=== PATIENT | female | born 1950 | race Caucasian/White ===

== ENCOUNTER 2017-01-23 16:01 | Emergency (ER) | payer BC, MEDICARE ==
--- NOTE | 2017-01-23 16:54 | RAD ---
INDICATION: Left shoulder pain COMPARISON: None TECHNIQUE: AP, lateral, and oblique views were obtained. FINDINGS: There is osteopenia with minimal impacted fracture involving the surgical neck of the humerus. No other fractures are evident. 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 IMPRESSION: IMPACTED SURGICAL NECK FRACTURE.
[2017-01-23] MEDS ORDERED: HYDROcodone/ACETAMIN 5-325 MG* 1 TAB PO ONE (17:44)
--- NOTE | 2017-01-23 19:15 | RAD ---
INDICATION: Proximal humeral fracture COMPARISON: Left shoulder same date TECHNIQUE: Axial scans of the proximal humerus were performed followed by coronal and sagittal reconstruction. FINDINGS: There is an impacted transverse fracture through the surgical neck of the humerus. There are small avulsed fracture fragments at the junction of the head and neck. There are no other fractures. The a.c. and glenohumeral joints appear intact. There is minor underlying osteoarthritis. There are no significant soft tissue abnormalities. IMPRESSION: IMPACTED FRACTURE THE SURGICAL NECK OF THE HUMERUS WITH ADDITIONAL SMALL AVULSED FRAGMENTS.
[2017-01-23 20:02] VITALS: BP 128/57
--- NOTE | 2017-01-24 04:26 | ED ---
Jer Robledo Angela, scribed for Ashly Quinonez MD on 01/23/17 at 1720 . Upper Extremity Pain - HPI Summary HPI Summary: This pt is a 66 y/o female, accompanid by her niece, presenting to [facility] c/o left upper arm pain s/p fall 3 days ago. Pt reports she woke up at 06:00 3 days ago after hearing a loud noise and her cat jumped to her neck, which caused her to fall. She notes head strike but denies head injury or LOC. Pt reports left upper arm pain, which is aggravated with movement. She notes bruise on her left arm and has been using a sling for comfort. Pt denies headache, blurry vision, neck pain, chest pain, SOB, abd pain, back pain, dysuria, hematuria. Pt is on baby aspirin (once a day). She reports her tetanus shot is UTD. She is "trying to stop smoking." Pt is currently being treated for depression and anxiety. She denies SI, HI, hallucinations. - History of Current Complaint Chief Complaint: EDExtremityUpper Stated Complaint: LT SHOULDER INJURY Time Seen by Provider: 01/23/17 17:09 Hx Obtained From: Patient Mechanism Of Injury: Fall From Height Of: Onset/Duration: Started Days Ago, Traumatic, Still Present Timing: Lasting Days Pain Location: Arm - left upper Aggravating Factor(s): Movement Associated Signs & Symptoms: Positive: Bruising. Negative: Fever, Chest Pain, SOB, Back Pain, Neck Pain - Allergies/Home Medications Allergies/Adverse Reactions: Allergies Allergy/AdvReac Type Severity Reaction Status Date / Time No Known Allergies Allergy Verified 02/06/14 11:42 PMH/Surg Hx/FS Hx/Imm Hx Endocrine/Hematology History: Reports: Hx Diabetes Cardiovascular History: Reports: Hx Hypertension, Other Cardiovascular Problems/ Disorders - high cholesterol Psychiatric History: Reports: Hx Anxiety, Hx Depression - Immunization History Date of Tetanus Vaccine: UTD Date of Influenza Vaccine: NO Infectious Disease History: No Infectious Disease History: Denies: Traveled Outside the [place] in Last 30 Days - Family History Known Family History: Positive: Diabetes, Other - Mother: kidney CA. Father: prostate CA. - Social History Alcohol Use: Occasionally Substance Use Type: Reports: None Smoking Status (MU): Current Some Day Smoker Review of Systems Negative: Fever, Chills Negative: Blurred Vision, Diplopia Negative: Chest Pain Negative: Shortness Of Breath Negative: Abdominal Pain Negative: dysuria, hematuria Musculoskeletal: Other - left upper arms pain Negative: Other - back pain, neck pain Positive: Bruising - left arm Negative: Headache Negative: Other - SI, HI, hallucinations All Other Systems Reviewed And Are Negative: No Physical Exam - Summary Physical Exam Summary: Appearance: Alert, conversive, nontoxic appearing Skin: Warm, dry, no mottling, no rashes, no contusions HEENT: EOMI, PERRL, moist mucous membranes Neck: No masses on the neck, supple Respiratory: Clear to auscultation, breath sounds present, no rales, no rhonchi , no wheezes Cardiovascular: RRR, pulses are symmetrical in both lower and upper extremities Abdomen: Soft, non-tender Bowel Sounds: Present Musculoskeletal: No CVA tenderness, no obvious deformity. Bruising along the proximal left arm. Neurological: A&Ox3, CN II-XII Intact, moving all extremities symmetrically Psychiatric: Normal affect and mood Triage Information Reviewed: Yes Vital Signs On Initial Exam: Initial Vitals Temp Pulse Resp BP Pulse Ox 97.2 F 89 20 83/65 95 01/23/17 16:03 01/23/17 16:03 01/23/17 16:03 01/23/17 16:03 01/23/17 16:03 Vital Signs Reviewed: Yes - Reanna Coma Scale Coma Scale Total: 15 Diagnostics - Vital Signs Vital Signs Temp Pulse Resp BP Pulse Ox 01/23/17 16:03 97.2 F 89 20 83/65 95 - Laboratory Lab Statement: Any lab studies that have been ordered have been reviewed, and results considered in the medical decision making process. - Radiology Left shoulder XR Xray Interpretation: Positive (See Comments) - IMPRESSION: Impacted surgical neck fracture. Dr. Quinonez has reviewed this radiology report. Radiology Interpretation Completed By: Radiologist - CT Left upper extremity CT CT Interpretation Completed By: Radiologist - Official radiologist report is pending, please see Delivery Agent. Course/Dx - Course Course Of Treatment: This pt is a 66 y/o female, accompanid by her niece, presenting to [facility] c/o left upper arm pain s/p fall 3 days ago. Pt reports she woke up at 06:00 3 days ago after hearing a loud noise and her cat jumped to her neck, which caused her to fall. She notes head strike but denies head injury or LOC. Pt reports left upper arm pain, which is aggravated with movement. She notes bruise on her left arm and has been using a sling for comfort. MDM: Left shoulder XR shows impacted surgical neck fracture. In the ED course, the pt was given norco for the pain. A left upper extremity CT was ordered. - Diagnoses Differential Diagnosis/HQI/PQRI: Positive: Arthritis, Contusion, Fracture ( Closed) Provider Diagnoses: Humeral surgical neck fracture Discharge - Discharge Plan Condition: Stable Disposition: HOME Discharge Disposition Comment: stable Patient Education Materials: Proximal Humerus Fracture (ED) Referrals: Meron Graham MD [Primary Care Provider] - Jayy Donaldson MD [Medical Doctor] - Additional Instructions: Take tylenol and motrin for pain. Please wear the sling as instructed. Please call Dr. Donaldson's office, orthopedic surgeon, for a follow up appt in 3-5 days. return if worse or any new symptoms. The documentation as recorded by the Jer marie Angela accurately reflects the service I personally performed and the decisions made by , Ashly Quinonez MD.
== END 2017-01-23 20:40 | disposition home or self-care (01) ==
LOC: ED 16:01
DX: S42.212A Unspecified displaced fracture of surgical neck of left humerus, initial encounter for closed fracture (principal); M79.602 Pain in left arm; Z86.79 Personal history of other diseases of the circulatory system; Z72.0 Tobacco use; W19.XXXA Unspecified fall, initial encounter; Y93.9 Activity, unspecified; Y92.9 Unspecified place or not applicable; Y99.9 Unspecified external cause status
CPT/HCPCS: 99282

== ENCOUNTER 2020-09-06 16:30 | Inpatient (IN) ==
[2020-09-06] MEDS ORDERED: NS 0.9% 1000 ml BAG 1,000 ML IV ONE ×2 (16:50→17:10)
[2020-09-06 17:02] LABS: Hematocrit 46 % (35-47); Hemoglobin 14.7 g/dL (12.0-16.0); Mean Corpuscular HGB Conc 32 g/dL (31-36); Mean Corpuscular Hemoglobin 32 pg (27-31); Mean Corpuscular Volume 98 fL (80-97); Mean Platelet Volume 8.4 fL (7.4-10.4); Platelet Count 272 10^3/uL (150-450); Red Blood Count 4.65 10^6 /uL (3.70-4.87); Red Cell Distribution Width 14 % (10-15); White Blood Count 28.4 10^3/uL (3.5-10.8)
[2020-09-06 17:17] LABS: ABS Lymphocytes 2.8 10^3/ul (1.0-4.8); ABS Monocytes 1.8 10^3/ul (0-0.8); ABS Neutrophils 23.7 10^3/ul (1.5-7.7); Eosinophil % 0.1 %
[2020-09-06 17:21] LABS: Troponin I 2.11 ng/mL (<0.03)
[2020-09-06 17:28] LABS: Activated Partial Thrombo Time 30.3 seconds (26.0-38.0); INR 1.15 (0.86-1.15)
[2020-09-06 17:36] LABS: Albumin 3.4 g/dL (3.2-5.2); Blood Urea Nitrogen 51 mg/dL (6-24); Calcium 7.8 mg/dL (8.6-10.3); Chloride 94 mmol/L (101-111); EGFR African American 21.7 (>60); EGFR Non-African American 17.9 (>60); Magnesium 2.6 mg/dL (1.9-2.7); Potassium 4.1 mmol/L (3.5-5.0); Sodium 134 mmol/L (135-145); Total Protein 5.4 g/dL (6.4-8.9)
[2020-09-06 17:37] LABS: ALT 30 U/L (7-52); AST 44 U/L (13-39); Albumin/Globulin Ratio 1.7 (1-3); Alkaline Phosphatase 56 U/L (35-149); Anion Gap 27 mmol/L (2-11); CO2 Carbon Dioxide 13 mmol/L (22-32); Glucose 504 mg/dL (70-100); Lipase 19 U/L (11.0-82.0)
[2020-09-06] MEDS ORDERED: Piperacillin/Tazobac ADVAN 3.375 GM in NS 0.9% 100 ml BAG 100 ML IV ONE (17:48)
[2020-09-06] MEDS ORDERED: Vancomycin 2,000 MG in NS 0.9% 250 ml 250 ML IVPB ONE (17:49)
[2020-09-06] MEDS ORDERED: Insulin Infusion 100unit/100mL 100 UNIT/100 ML BAG IV ONE (18:14)
[2020-09-06] MEDS ORDERED: Vancomycin 1,750 MG in NS 0.9% 500 ml BAG 500 ML IVPB ONE (18:30)
[2020-09-06] MEDS ORDERED: Norepinephrine 16MCG/ML IVPRE 4,000 MCG/250 ML BAG IV SCH (19:00)
[2020-09-06] MEDS ORDERED: Meropenem 1 GM PREMIX(*) 1 GM/50 ML BAG IV ONE (20:14)
[2020-09-06] MEDS ORDERED: Morphine 2 MG/ML SYRINGE IV PRN (20:14)
[2020-09-06] MEDS ORDERED: Ondansetron 4 mg VIAL 2 MG/ML 2 ml VIAL IV PRN (20:14)
[2020-09-06] MEDS ORDERED: Acetaminophen IV 1 GM/100ML 100 ML IV ONE (20:15)
[2020-09-06] MEDS ORDERED: Pantoprazole VIAL 40 MG VIAL IV ONE (20:25)
[2020-09-06] MEDS ORDERED: Dextrose 50% Syringe 50 ml 25 GM/50 ML SYRINGE IV PUSH PRN (20:54)
[2020-09-06] MEDS ORDERED: Meropenem 500MG PREMIX(*) 500 MG/50 ML BAG IV SCH (21:00)
[2020-09-06] MEDS ORDERED: Sodium Bicarb 8.4% Vial 50 ML 150 MEQ in D5W 1000 ml BAG 850 ML IV ONE (21:00)
[2020-09-06] MEDS ORDERED: Sodium Bicarb 8.4% Vial 50 ML 100 MEQ in D5W 1000 ml BAG 1,000 ML IV SCH (21:00)
[2020-09-06] MEDS ORDERED: Morphine 4 MG/ML VIAL (1 ml) IV ONE (21:13)
[2020-09-06 21:51] LABS: Hematocrit 43 % (35-47); Hemoglobin 13.9 g/dL (12.0-16.0); Mean Corpuscular HGB Conc 33 g/dL (31-36); Mean Corpuscular Hemoglobin 32 pg (27-31); Mean Corpuscular Volume 96 fL (80-97); Mean Platelet Volume 8.7 fL (7.4-10.4); Platelet Count 262 10^3/uL (150-450); Red Blood Count 4.41 10^6 /uL (3.70-4.87); Red Cell Distribution Width 14 % (10-15); White Blood Count 22.5 10^3/uL (3.5-10.8)
[2020-09-06] MEDS ORDERED: KCL 20 MEQ/100 ML IVPREMIX 20 MEQ/100 ML BAG IV ONE (21:52)
[2020-09-06] MEDS ORDERED: Sodium Bicarb 8.4% Vial 50 ML 150 MEQ in D5W 1000 ml BAG 1,000 ML IV SCH (22:00)
[2020-09-06 22:15] LABS: RBC Morphology Normal (Normal); Toxic Granulation 1+
[2020-09-06 22:16] LABS: ABS Lymphocytes 1.7 10^3/ul (1.0-4.8); ABS Neutrophils 19.7 10^3/ul (1.5-7.7); Eosinophil % 0.1 %; Lymphocyte % 7.7 %
[2020-09-06 22:27] LABS: PCO2 Arterial 30 mmHg (35-45); PO2 Arterial 92 mmHg (80-100)
[2020-09-06 22:30] LABS: Anion Gap 20 mmol/L (2-11); Blood Urea Nitrogen 55 mg/dL (6-24); CO2 Carbon Dioxide 15 mmol/L (22-32); Calcium 6.8 mg/dL (8.6-10.3); Chloride 100 mmol/L (101-111); EGFR African American 23.2 (>60); EGFR Non-African American 19.2 (>60); Glucose 363 mg/dL (70-100); Potassium 4.3 mmol/L (3.5-5.0); Sodium 135 mmol/L (135-145)
[2020-09-06] MEDS: Pantoprazole 80 mg in NS BAG 80 MG/250 ML BAG IV SCH (22:44)
[2020-09-06 22:54] LABS: Urine Appearance Cloudy; Urine Bilirubin Negative (Negative); Urine Blood 3+ (Negative); Urine Color Amber; Urine Glucose 2+(150 mg/dL) (Negative); Urine Ketones Trace (Negative); Urine Nitrite Negative (Negative); Urine Protein 2+(100 mg/dL) (Negative); Urine Specific Gravity 1.015 (1.002-1.030); Urine Urobilinogen Negative (Negative)
[2020-09-06 23:03] LABS: Urine Creatinine Concentration 57.12 mg/dL
[2020-09-06 23:14] LABS: Urine Bacteria 3+ (Absent); Urine Red Blood Cell 2+(6-10/hpf) (Absent); Urine Squamous Epithelial Cell Present (Absent); Urine White Blood Cell 2+(11-20/hpf) (Absent)
[2020-09-06] MEDS ORDERED: Lidocaine 2% PF 5 ML VIAL ONE (23:27)
[2020-09-06] MEDS ORDERED: Succinylcholine 200 mg VIAL 20 mg/ml 10 ml VIAL (200 mg) ONE (23:27)
[2020-09-06] MEDS ORDERED: Midazolam 2 mg/2 ml VIAL 1 mg/ml 2 ml VIAL (2 mg) ONE (23:27)
[2020-09-06] MEDS ORDERED: Propofol 10 MG/ML 20 ML BTL ONE (23:27)
[2020-09-06] MEDS ORDERED: fentaNYL 250 mcg/5 ml 50 MCG/ML 5 ml VIAL (250 MCG) ONE (23:27)
[2020-09-06] MEDS ORDERED: Rocuronium 50 mg VIAL 10 mg/ml 5 ml VIAL (50 mg) ONE (23:30)
[2020-09-06] MEDS ORDERED: Sterile Water for Inj 10 ML ONE (23:40)
[2020-09-06] MEDS ORDERED: EPHEDrine (Pressors) 50 MG/ML VIAL ONE (23:40)
[2020-09-07 00:39] LABS: PCO2 Arterial 43 mmHg (35-45); PO2 Arterial 203 mmHg (80-100)
[2020-09-07] MEDS ORDERED: Rocuronium 50 mg VIAL 10 mg/ml 5 ml VIAL (50 mg) ONE ×2 (00:43→02:11)
[2020-09-07 01:14] LABS: Troponin I 2.14 ng/mL (<0.03)
[2020-09-07] MEDS ORDERED: Midazolam 2 mg/2 ml VIAL 1 mg/ml 2 ml VIAL (2 mg) ONE (02:53)
[2020-09-07] MEDS: Propofol 10 mg/ml 100 ML BTL 100 ML IV SCH ×2 (03:48→10:51)
[2020-09-07 04:31] LABS: EGFR African American 29.2 (>60); EGFR Non-African American 24.1 (>60); Potassium 3.9 mmol/L (3.5-5.0)
[2020-09-07] MEDS ORDERED: Insulin GLARGINE 100 un/ml 10 ml VIAL SUBCUT ONE (04:45)
[2020-09-07 04:49] LABS: Calcium 5.7 mg/dL (8.6-10.3)
[2020-09-07] MEDS ORDERED: Calcium Gluconate 2 GM in NS 0.9% 100 ml BAG 100 ML IV ONE ×2 (04:49→16:20)
[2020-09-07] MEDS ORDERED: Insulin GLARGINE 100 un/ml 10 ml VIAL ONE (04:51)
[2020-09-07] MEDS: Chlorhexidine MOUTHWASH 0.12% 15 ML UDC TOPICAL SCH ×5 (04:56→20:46)
[2020-09-07] MEDS ORDERED: Sodium Bicarbonate 8.4% 75 MEQ in HNS 0.45% 1000 ML BAG IV SCH (05:00)
[2020-09-07] MEDS: Morphine 2 MG/ML SYRINGE IV PRN (05:40)
[2020-09-07 07:06] LABS: Hematocrit 38 % (35-47); Mean Corpuscular HGB Conc 34 g/dL (31-36); Mean Corpuscular Hemoglobin 32 pg (27-31); Mean Corpuscular Volume 94 fL (80-97); Mean Platelet Volume 9.2 fL (7.4-10.4); Platelet Count 220 10^3/uL (150-450); Red Blood Count 4.07 10^6 /uL (3.70-4.87); Red Cell Distribution Width 14 % (10-15); White Blood Count 12.1 10^3/uL (3.5-10.8)
[2020-09-07 07:33] LABS: Glucose Confirmatory 401 mg/dL (70-100)
[2020-09-07] MEDS: Pantoprazole 80 mg in NS BAG 80 MG/250 ML BAG IV SCH ×4 (07:40→22:47)
[2020-09-07 08:11] LABS: ABS Lymphocytes 1.2 10^3/ul (1.0-4.8); ABS Monocytes 1.2 10^3/ul (0-0.8); ABS Neutrophils 9.6 10^3/ul (1.5-7.7); Eosinophil % 0.1 %; Lymphocyte % 10.3 %; Nucleated Red Blood Cells % 0.1
[2020-09-07] MEDS: Meropenem 500MG PREMIX(*) 500 MG/50 ML BAG IV SCH ×2 (08:13→20:54)
[2020-09-07 08:15] LABS: RBC Morphology Normal (Normal)
[2020-09-07] MEDS: Norepinephrine 16MCG/ML IVPRE 4,000 MCG/250 ML BAG IV SCH ×2 (08:15→10:50)
[2020-09-07] MEDS ORDERED: Perflutren Lipid Microsphere 3 ML VIAL ONE (09:08)
[2020-09-07 09:11] LABS: EGFR African American 30.6 (>60); EGFR Non-African American 25.3 (>60); Potassium 4.3 mmol/L (3.5-5.0)
[2020-09-07] MEDS ORDERED: Furosemide 40 mg/4 ml IV VIAL IV ONE (09:12)
[2020-09-07 09:36] LABS: Calcium 6.3 mg/dL (8.6-10.3)
[2020-09-07] MEDS ORDERED: Norepinephrine 16MCG/ML IVPRE 4,000 MCG/250 ML BAG IV ONE (10:49)
[2020-09-07] MEDS: fentaNYL INFUSION 50 mcg/mL VL 2,500 MCG/50 ML VIAL IV SCH (11:12)
[2020-09-07] MEDS: Phenylephrine IV 50 MG in NS 0.9% 250 ml 245 ML IV SCH ×3 (11:56→21:21)
[2020-09-07] MEDS: Acetaminophen IV 1 GM/100ML 100 ML IV PRN (12:13)
[2020-09-07 12:43] LABS: Blood Urea Nitrogen 51 mg/dL (6-24); CO2 Carbon Dioxide 26 mmol/L (22-32); Chloride 98 mmol/L (101-111); Glucose 287 mg/dL (70-100); Sodium 135 mmol/L (135-145)
[2020-09-07 12:59] LABS: Calcium 6.3 mg/dL (8.6-10.3)
[2020-09-07 13:11] LABS: Anion Gap 11 mmol/L (2-11)
[2020-09-07] MEDS ORDERED: Lorazepam PYXIS KEY PRN ×2 (13:44→16:18)
[2020-09-07] MEDS: LORazepam 2 mg VIAL 1 ml IV PUSH PRN ×2 (14:50→20:46)
[2020-09-07] MEDS ORDERED: LORazepam 2 mg VIAL 1 ml IV PUSH ONE (16:19)
[2020-09-07] MEDS ORDERED: LORazepam 2 mg VIAL 1 ml ONE (16:20)
[2020-09-07] MEDS ORDERED: Lorazepam PYXIS KEY ONE (16:20)
[2020-09-07] MEDS ORDERED: Phenylephrine IV 10 MG/ML 1 ml VIAL ONE ×3 (16:34→21:16)
[2020-09-07 20:42] LABS: Hematocrit 39 % (35-47); Hemoglobin 13.4 g/dL (12.0-16.0); Mean Corpuscular HGB Conc 34 g/dL (31-36); Mean Corpuscular Hemoglobin 32 pg (27-31); Mean Corpuscular Volume 92 fL (80-97); Mean Platelet Volume 8.6 fL (7.4-10.4); Platelet Count 200 10^3/uL (150-450); Red Blood Count 4.24 10^6 /uL (3.70-4.87); Red Cell Distribution Width 14 % (10-15); White Blood Count 14.8 10^3/uL (3.5-10.8)
[2020-09-07] MEDS: Insulin GLARGINE 100 un/ml 10 ml VIAL SUBCUT SCH (20:45)
[2020-09-07 21:04] LABS: Albumin 2.6 g/dL (3.2-5.2); Albumin/Globulin Ratio 1.2 (1-3); Calcium 6.9 mg/dL (8.6-10.3); EGFR African American 23.4 (>60); EGFR Non-African American 19.3 (>60); Globulin 2.2 g/dL (2-4); Magnesium 1.9 mg/dL (1.9-2.7); Phosphorus 3.3 mg/dL (2.5-5.0); Potassium 3.9 mmol/L (3.5-5.0); Total Bilirubin 0.6 mg/dL (0.2-1.0); Total Protein 4.8 g/dL (6.4-8.9)
[2020-09-07 21:13] LABS: ABS Lymphocytes 1.7 10^3/ul (1.0-4.8); ABS Monocytes 0.9 10^3/ul (0-0.8); ABS Neutrophils 12.2 10^3/ul (1.5-7.7); Lymphocyte % 11.4 %; RBC Morphology Normal (Normal)
[2020-09-07] MEDS ORDERED: Pantoprazole 80 mg in NS BAG 80 MG/250 ML BAG IV SCH (22:00)
[2020-09-08] MEDS: Chlorhexidine MOUTHWASH 0.12% 15 ML UDC TOPICAL SCH ×6 (00:29→20:41)
[2020-09-08] MEDS: Acetaminophen IV 1 GM/100ML 100 ML IV PRN ×2 (00:38→15:54)
[2020-09-08] MEDS: LORazepam 2 mg VIAL 1 ml IV PUSH PRN ×2 (00:39→07:43)
[2020-09-08] MEDS: NORMOSOL-R pH 7.4 1000 mL BAG 1,000 ML IV SCH ×2 (00:56→14:14)
[2020-09-08] MEDS: Phenylephrine IV 50 MG in NS 0.9% 250 ml 245 ML IV SCH ×3 (01:41→10:27)
[2020-09-08] MEDS ORDERED: Lactated Ringers 500 ml BAG 500 ML IV ONE (03:47)
[2020-09-08] MEDS: Norepinephrine 16MCG/ML IVPRE 4,000 MCG/250 ML BAG IV SCH ×3 (05:37→16:37)
[2020-09-08] MEDS: Heparin 5000 UNITS/ML 1 mL VIAL SUBCUT SCH ×3 (05:37→20:42)
[2020-09-08 05:45] LABS: Hematocrit 36 % (35-47); Hemoglobin 11.8 g/dL (12.0-16.0); Mean Corpuscular HGB Conc 33 g/dL (31-36); Mean Corpuscular Hemoglobin 31 pg (27-31); Mean Corpuscular Volume 94 fL (80-97); Mean Platelet Volume 8.8 fL (7.4-10.4); Platelet Count 175 10^3/uL (150-450); Red Blood Count 3.75 10^6 /uL (3.70-4.87); Red Cell Distribution Width 14 % (10-15); White Blood Count 16.2 10^3/uL (3.5-10.8)
[2020-09-08 06:16] LABS: Albumin 2.4 g/dL (3.2-5.2); Magnesium 1.9 mg/dL (1.9-2.7); Total Bilirubin 0.6 mg/dL (0.2-1.0)
[2020-09-08 06:22] LABS: Albumin/Globulin Ratio 1.3 (1-3); EGFR African American 20.5 (>60); EGFR Non-African American 16.9 (>60); Globulin 1.9 g/dL (2-4); Phosphorus 3.8 mg/dL (2.5-5.0); Total Protein 4.3 g/dL (6.4-8.9)
[2020-09-08 07:03] LABS: Calcium 6.2 mg/dL (8.6-10.3)
[2020-09-08] MEDS: Meropenem 500MG PREMIX(*) 500 MG/50 ML BAG IV SCH (07:29)
[2020-09-08] MEDS ORDERED: Magnesium Sulfate 2 gm BAG 2 GM/50 ML BAG IVPB ONE (07:50)
[2020-09-08] MEDS: fentaNYL INFUSION 50 mcg/mL VL 2,500 MCG/50 ML VIAL IV SCH (08:00)
[2020-09-08 08:44] LABS: RBC Morphology Normal (Normal)
[2020-09-08 08:45] LABS: ABS Lymphocytes 1.6 10^3/ul (1.0-4.8); ABS Neutrophils 13.6 10^3/ul (1.5-7.7); Eosinophil % 0.1 %
[2020-09-08] MEDS ORDERED: Hydrocortisone INJ 250 MG VIAL IV ONE (09:19)
[2020-09-08] MEDS ORDERED: Lorazepam PYXIS KEY ONE (09:26)
[2020-09-08] MEDS ORDERED: LORazepam 2 mg VIAL 1 ml ONE (09:26)
[2020-09-08] MEDS: Pantoprazole 80 mg in NS BAG 80 MG/250 ML BAG IV SCH (09:40)
[2020-09-08] MEDS ORDERED: Lorazepam PYXIS KEY PRN (09:44)
[2020-09-08] MEDS ORDERED: LORazepam 2 mg VIAL 1 ml IV PUSH ONE (09:45)
[2020-09-08] MEDS ORDERED: fentaNYL INFUSION 50 mcg/mL VL 2,500 MCG/50 ML VIAL IV SCH ×2 (10:13→10:21)
[2020-09-08] MEDS ORDERED: Piperacillin/Tazobac ADVAN 3.375 GM in NS 0.9% 100 ml BAG 100 ML IV ONE (10:15)
[2020-09-08] MEDS ORDERED: Zosyn per Pharmacy NOTE FOLLOW UP SCH (11:00)
[2020-09-08] MEDS: Dexmedetomidine 1,000 MCG in NS 0.9% 250 ml 240 ML IV SCH ×2 (11:19→22:28)
[2020-09-08] MEDS: ZOSYN 3.375 GM Q12H per EXTENDED INFUSION IV SCH (13:10)
[2020-09-08 17:32] LABS: Urine Potassium Concentration 58.3 mmol/L
[2020-09-08] MEDS: Hydrocortisone INJ 100 MG/2ML 2 ML VIAL IV SCH (17:37)
[2020-09-08] MEDS ORDERED: Norepinephrine 16MCG/ML IVPRE 4,000 MCG/250 ML BAG IV SCH (17:57)
[2020-09-08 20:05] LABS: Hematocrit 34 % (35-47); Hemoglobin 11.6 g/dL (12.0-16.0); Mean Corpuscular HGB Conc 34 g/dL (31-36); Mean Corpuscular Hemoglobin 32 pg (27-31); Mean Corpuscular Volume 93 fL (80-97); Mean Platelet Volume 9.2 fL (7.4-10.4); Platelet Count 153 10^3/uL (150-450); Red Blood Count 3.64 10^6 /uL (3.70-4.87); Red Cell Distribution Width 14 % (10-15); White Blood Count 20.1 10^3/uL (3.5-10.8)
[2020-09-08 20:24] LABS: Albumin 2.5 g/dL (3.2-5.2); Albumin/Globulin Ratio 1.2 (1-3); EGFR Non-African American 15.7 (>60); Globulin 2.1 g/dL (2-4); Magnesium 2.6 mg/dL (1.9-2.7); Potassium 3.8 mmol/L (3.5-5.0); Total Bilirubin 0.5 mg/dL (0.2-1.0); Total Protein 4.6 g/dL (6.4-8.9)
[2020-09-08 20:27] LABS: Calcium 6.1 mg/dL (8.6-10.3)
[2020-09-08] MEDS: Pantoprazole VIAL 40 MG VIAL IV SCH (20:41)
[2020-09-08] MEDS: Insulin GLARGINE 100 un/ml 10 ml VIAL SUBCUT SCH (20:42)
[2020-09-08 21:56] LABS: RBC Morphology Normal (Normal)
[2020-09-08 21:57] LABS: ABS Monocytes 0.9 10^3/ul (0-0.8); ABS Neutrophils 18.1 10^3/ul (1.5-7.7)
[2020-09-09] MEDS: Chlorhexidine MOUTHWASH 0.12% 15 ML UDC TOPICAL SCH ×5 (00:41→17:12)
[2020-09-09] MEDS ORDERED: Calcium Gluconate 2 GM in NS 0.9% 100 ml BAG 100 ML IV ONE (01:23)
[2020-09-09] MEDS: Hydrocortisone INJ 100 MG/2ML 2 ML VIAL IV SCH ×3 (02:22→16:28)
[2020-09-09] MEDS: ZOSYN 3.375 GM Q12H per EXTENDED INFUSION IV SCH (02:22)
[2020-09-09] MEDS: NORMOSOL-R pH 7.4 1000 mL BAG 1,000 ML IV SCH (03:30)
[2020-09-09] MEDS: LORazepam 2 mg VIAL 1 ml IV PUSH PRN ×2 (05:13→20:14)
[2020-09-09] MEDS: Heparin 5000 UNITS/ML 1 mL VIAL SUBCUT SCH ×3 (05:27→21:15)
[2020-09-09 05:51] LABS: Hematocrit 33 % (35-47); Hemoglobin 11.1 g/dL (12.0-16.0); Mean Corpuscular HGB Conc 33 g/dL (31-36); Mean Corpuscular Hemoglobin 31 pg (27-31); Mean Corpuscular Volume 94 fL (80-97); Mean Platelet Volume 8.9 fL (7.4-10.4); Platelet Count 141 10^3/uL (150-450); Red Blood Count 3.54 10^6 /uL (3.70-4.87); Red Cell Distribution Width 14 % (10-15); White Blood Count 21.8 10^3/uL (3.5-10.8)
[2020-09-09 06:12] LABS: Albumin 2.4 g/dL (3.2-5.2); Calcium 6.6 mg/dL (8.6-10.3); EGFR African American 17.7 (>60); EGFR Non-African American 14.6 (>60); Globulin 2.4 g/dL (2-4); Magnesium 2.6 mg/dL (1.9-2.7); Phosphorus 3.9 mg/dL (2.5-5.0); Potassium 3.6 mmol/L (3.5-5.0); Total Bilirubin 0.5 mg/dL (0.2-1.0); Total Protein 4.8 g/dL (6.4-8.9)
[2020-09-09] MEDS: Norepinephrine 16MCG/ML IVPRE 4,000 MCG/250 ML BAG IV SCH ×2 (06:20→07:23)
[2020-09-09 07:17] LABS: ABS Lymphocytes 1.2 10^3/ul (1.0-4.8); ABS Monocytes 0.9 10^3/ul (0-0.8); ABS Neutrophils 19.6 10^3/ul (1.5-7.7); Lymphocyte % 5.7 %
[2020-09-09] MEDS: Pantoprazole VIAL 40 MG VIAL IV SCH ×2 (07:23→21:15)
[2020-09-09] MEDS: KCL 20 MEQ/100 ML IVPREMIX 20 MEQ/100 ML BAG IV SCH ×2 (07:34→09:07)
[2020-09-09] MEDS: Dexmedetomidine 1,000 MCG in NS 0.9% 250 ml 240 ML IV SCH ×3 (07:54→22:54)
[2020-09-09] MEDS ORDERED: metroNIDAZOLE IV 500 MG/100ML 500 MG/100 ML BAG IVPB SCH (11:00)
[2020-09-09 11:22] LABS: Urine Creatinine Concentration 47.36 mg/dL
[2020-09-09 11:30] LABS: PCO2 Arterial 31 mmHg (35-45); PO2 Arterial 148 mmHg (80-100)
[2020-09-09] MEDS: cefTRIAXone 1 gm/50 mL NS BAG 1 GM/50 ML BAG IVPB SCH (11:33)
[2020-09-09] MEDS: metroNIDAZOLE IV 500 MG/100ML 500 MG/100 ML BAG IVPB SCH ×2 (11:34→19:41)
[2020-09-09 12:00] LABS: Urine Appearance Cloudy; Urine Bilirubin Negative (Negative); Urine Blood 3+ (Negative); Urine Color Yellow; Urine Glucose Negative (Negative); Urine Ketones Negative (Negative); Urine Nitrite Negative (Negative); Urine Protein 2+(100 mg/dL) (Negative); Urine Specific Gravity 1.016 (1.002-1.030); Urine Urobilinogen Negative (Negative)
[2020-09-09 12:16] LABS: Urine Bacteria Absent (Absent); Urine Red Blood Cell 2+(6-10/hpf) (Absent); Urine Squamous Epithelial Cell Present (Absent); Urine White Blood Cell 3+(>20/hpf) (Absent); Urine Yeast Present (Absent)
[2020-09-09] MEDS ORDERED: Haloperidol 5 mg/ml SDV IV/IM 5 MG/ML AMP ONE (14:21)
[2020-09-09] MEDS ORDERED: Haloperidol 5 mg/ml SDV IV/IM 5 MG/ML AMP IV SLOW PU ONE (14:36)
[2020-09-09] MEDS ORDERED: Lorazepam PYXIS KEY ONE (15:42)
[2020-09-09] MEDS ORDERED: LORazepam 2 mg VIAL 1 ml ONE (15:43)
[2020-09-09] MEDS ORDERED: Lorazepam PYXIS KEY PRN (15:43)
[2020-09-09] MEDS ORDERED: LORazepam 2 mg VIAL 1 ml IV PUSH PRN (15:43)
[2020-09-09] MEDS: TPN 24 HR with Dextrose 50% Water 500 ML, Amino Acid Infusion 10% 850 ML, Sterile Water... CENTR SCH (16:28)
[2020-09-09] MEDS: fentaNYL 100 mcg/2 ml 50 MCG/ML VIAL IV SLOW PU PRN (18:02)
[2020-09-09] MEDS: Insulin GLARGINE 100 un/ml 10 ml VIAL SUBCUT SCH (21:16)
[2020-09-10] MEDS: Hydrocortisone INJ 100 MG/2ML 2 ML VIAL IV SCH (02:07)
[2020-09-10] MEDS: Haloperidol 5 mg/ml SDV IV/IM 5 MG/ML AMP IV SLOW PU PRN (02:28)
[2020-09-10] MEDS: fentaNYL 100 mcg/2 ml 50 MCG/ML VIAL IV SLOW PU PRN ×3 (03:02→22:38)
[2020-09-10] MEDS: metroNIDAZOLE IV 500 MG/100ML 500 MG/100 ML BAG IVPB SCH ×3 (03:15→18:46)
[2020-09-10] MEDS: LORazepam 2 mg VIAL 1 ml IV PUSH PRN ×4 (03:28→23:29)
[2020-09-10] MEDS: Heparin 5000 UNITS/ML 1 mL VIAL SUBCUT SCH ×3 (05:12→21:41)
[2020-09-10 05:24] LABS: Hematocrit 30 % (35-47); Hemoglobin 10.1 g/dL (12.0-16.0); Mean Corpuscular HGB Conc 34 g/dL (31-36); Mean Corpuscular Hemoglobin 32 pg (27-31); Mean Corpuscular Volume 94 fL (80-97); Mean Platelet Volume 9.2 fL (7.4-10.4); Platelet Count 108 10^3/uL (150-450); Red Blood Count 3.16 10^6 /uL (3.70-4.87); Red Cell Distribution Width 14 % (10-15); White Blood Count 17.4 10^3/uL (3.5-10.8)
[2020-09-10 05:39] LABS: Albumin 2.4 g/dL (3.2-5.2); Albumin/Globulin Ratio 1.1 (1-3); EGFR African American 16.3 (>60); EGFR Non-African American 13.5 (>60); Globulin 2.2 g/dL (2-4); Magnesium 2.9 mg/dL (1.9-2.7); Phosphorus 3.8 mg/dL (2.5-5.0); Potassium 4.3 mmol/L (3.5-5.0); Total Bilirubin 0.4 mg/dL (0.2-1.0); Total Protein 4.6 g/dL (6.4-8.9)
[2020-09-10] MEDS: Dexmedetomidine 1,000 MCG in NS 0.9% 250 ml 240 ML IV SCH ×3 (05:59→19:51)
[2020-09-10] MEDS: Morphine 2 MG/ML SYRINGE IV PRN ×2 (06:07→16:47)
[2020-09-10 07:04] LABS: ABS Lymphocytes 1.4 10^3/ul (1.0-4.8); Lymphocyte % 7.9 %
[2020-09-10] MEDS: Pantoprazole VIAL 40 MG VIAL IV SCH ×2 (09:33→20:09)
[2020-09-10] MEDS ORDERED: Ziprasidone IM 20 mg VIAL 1 ml VIAL IM ONE (10:32)
[2020-09-10] MEDS ORDERED: Albuterol/Ipratropium NEB.SOL (2.5/0.5 MG) 3 ML NEB.SOLN INH PRN (11:01)
[2020-09-10] MEDS ORDERED: Albuterol/Ipratropium NEB.SOL (2.5/0.5 MG) 3 ML NEB.SOLN ONE (11:06)
[2020-09-10] MEDS: Acetaminophen IV 1 GM/100ML 100 ML IV PRN ×2 (11:06→17:26)
[2020-09-10] MEDS: cefTRIAXone 1 gm/50 mL NS BAG 1 GM/50 ML BAG IVPB SCH (11:30)
[2020-09-10] MEDS: TPN 24 HR with Dextrose 50% Water 500 ML, Amino Acid Infusion 10% 850 ML, Sterile Water... CENTR SCH (16:24)
[2020-09-10] MEDS: Insulin GLARGINE 100 un/ml 10 ml VIAL SUBCUT SCH (20:09)
[2020-09-11] MEDS: Acetaminophen IV 1 GM/100ML 100 ML IV PRN (02:13)
[2020-09-11] MEDS: Morphine 2 MG/ML SYRINGE IV PRN (02:34)
[2020-09-11] MEDS: Dexmedetomidine 1,000 MCG in NS 0.9% 250 ml 240 ML IV SCH ×2 (03:21→11:01)
[2020-09-11] MEDS: metroNIDAZOLE IV 500 MG/100ML 500 MG/100 ML BAG IVPB SCH ×3 (03:38→18:37)
[2020-09-11] MEDS: Haloperidol 5 mg/ml SDV IV/IM 5 MG/ML AMP IV SLOW PU PRN (03:46)
[2020-09-11 03:49] LABS: Hematocrit 30 % (35-47); Hemoglobin 10.3 g/dL (12.0-16.0); Mean Corpuscular HGB Conc 34 g/dL (31-36); Mean Corpuscular Hemoglobin 32 pg (27-31); Mean Corpuscular Volume 95 fL (80-97); Mean Platelet Volume 9.4 fL (7.4-10.4); Platelet Count 114 10^3/uL (150-450); Red Blood Count 3.18 10^6 /uL (3.70-4.87); Red Cell Distribution Width 14 % (10-15); White Blood Count 13.2 10^3/uL (3.5-10.8)
[2020-09-11 04:12] LABS: Albumin 2.7 g/dL (3.2-5.2); Albumin/Globulin Ratio 1.3 (1-3); Calcium 7.8 mg/dL (8.6-10.3); EGFR African American 17.6 (>60); EGFR Non-African American 14.5 (>60); Globulin 2.1 g/dL (2-4); Magnesium 2.9 mg/dL (1.9-2.7); Phosphorus 4.2 mg/dL (2.5-5.0); Potassium 4.2 mmol/L (3.5-5.0); Total Bilirubin 0.3 mg/dL (0.2-1.0); Total Protein 4.8 g/dL (6.4-8.9)
[2020-09-11 04:39] LABS: ABS Eosinophils 0.1 10^3/ul (0-0.6); ABS Lymphocytes 1.7 10^3/ul (1.0-4.8); ABS Monocytes 1.2 10^3/ul (0-0.8); ABS Neutrophils 10.2 10^3/ul (1.5-7.7); Eosinophil % 0.8 %
[2020-09-11] MEDS ORDERED: Succinylcholine 200 mg VIAL 20 mg/ml 10 ml VIAL (200 mg) ONE ×2 (05:03→05:12)
[2020-09-11] MEDS ORDERED: Etomidate 40 mg/20 ml (2 MG/ML) 20 ml VIAL (40 mg) ONE (05:12)
[2020-09-11] MEDS ORDERED: Midazolam 10 mg/10 ml VIAL 1 mg/ml 10 ml VIAL (10 mg) ONE (05:12)
[2020-09-11 05:13] LABS: PCO2 Arterial 40 mmHg (35-45); PO2 Arterial 107 mmHg (80-100)
[2020-09-11] MEDS ORDERED: Propofol 10 mg/ml 100 ML BTL 100 ML ONE (05:27)
[2020-09-11] MEDS ORDERED: DOPamine 800 MG/250 ML IVPREM 800 MG/250 ML ML CENTR SCH (06:00)
[2020-09-11] MEDS: LORazepam 2 mg VIAL 1 ml IV PUSH PRN ×2 (07:12→18:24)
[2020-09-11] MEDS: Propofol 10 mg/ml 100 ML BTL 100 ML IV SCH ×2 (07:13→23:50)
[2020-09-11] MEDS: Heparin 5000 UNITS/ML 1 mL VIAL SUBCUT SCH ×3 (07:17→21:14)
[2020-09-11] MEDS: Pantoprazole VIAL 40 MG VIAL IV SCH ×2 (08:05→21:17)
[2020-09-11] MEDS: cefTRIAXone 1 gm/50 mL NS BAG 1 GM/50 ML BAG IVPB SCH (11:05)
[2020-09-11] MEDS: D5W 1000 ml BAG 1,000 ML IV SCH (11:56)
[2020-09-11] MEDS: Linezolid 600 MG IVPREMIX(*) 600 MG/300 ML BAG IVPB SCH (16:59)
[2020-09-11] MEDS: TPN CENTRAL STANDARD BASE A CENTR SCH (17:14)
[2020-09-11] MEDS: fentaNYL 100 mcg/2 ml 50 MCG/ML VIAL IV SLOW PU PRN (18:24)
[2020-09-11] MEDS: Chlorhexidine MOUTHWASH 0.12% 15 ML UDC TOPICAL SCH ×2 (18:32→21:44)
[2020-09-11 20:49] LABS: Hematocrit 29 % (35-47); Hemoglobin 9.5 g/dL (12.0-16.0); Mean Corpuscular HGB Conc 33 g/dL (31-36); Mean Corpuscular Hemoglobin 32 pg (27-31); Mean Corpuscular Volume 97 fL (80-97); Mean Platelet Volume 9.9 fL (7.4-10.4); Platelet Count 123 10^3/uL (150-450); Red Cell Distribution Width 14 % (10-15); White Blood Count 13.9 10^3/uL (3.5-10.8)
[2020-09-11 21:08] LABS: Albumin 2.4 g/dL (3.2-5.2); Albumin/Globulin Ratio 1.2 (1-3); Calcium 7.5 mg/dL (8.6-10.3); EGFR African American 17.2 (>60); EGFR Non-African American 14.2 (>60); Magnesium 2.6 mg/dL (1.9-2.7); Potassium 4.2 mmol/L (3.5-5.0); Total Bilirubin 0.3 mg/dL (0.2-1.0); Total Protein 4.4 g/dL (6.4-8.9)
[2020-09-11] MEDS: Insulin GLARGINE 100 un/ml 10 ml VIAL SUBCUT SCH (21:13)
[2020-09-11 21:38] LABS: ABS Eosinophils 0.3 10^3/ul (0-0.6); ABS Lymphocytes 1.8 10^3/ul (1.0-4.8); ABS Monocytes 1.4 10^3/ul (0-0.8); ABS Neutrophils 10.4 10^3/ul (1.5-7.7); Eosinophil % 2.3 %; Lymphocyte % 13.1 %
[2020-09-11] MEDS ORDERED: Furosemide 40 mg/4 ml IV VIAL IV ONE (22:11)
[2020-09-12] MEDS: Chlorhexidine MOUTHWASH 0.12% 15 ML UDC TOPICAL SCH ×6 (00:26→21:35)
[2020-09-12] MEDS: Dexmedetomidine 1,000 MCG in NS 0.9% 250 ml 240 ML IV SCH ×2 (01:49→08:22)
[2020-09-12] MEDS: metroNIDAZOLE IV 500 MG/100ML 500 MG/100 ML BAG IVPB SCH ×3 (02:28→20:27)
[2020-09-12 03:58] LABS: Hematocrit 29 % (35-47); Hemoglobin 9.6 g/dL (12.0-16.0); Mean Corpuscular HGB Conc 33 g/dL (31-36); Mean Corpuscular Hemoglobin 32 pg (27-31); Mean Corpuscular Volume 96 fL (80-97); Mean Platelet Volume 9.5 fL (7.4-10.4); Platelet Count 133 10^3/uL (150-450); Red Blood Count 3.01 10^6 /uL (3.70-4.87); Red Cell Distribution Width 14 % (10-15); White Blood Count 14.2 10^3/uL (3.5-10.8)
[2020-09-12 04:11] LABS: Albumin 2.3 g/dL (3.2-5.2); Calcium 7.7 mg/dL (8.6-10.3); Magnesium 2.4 mg/dL (1.9-2.7); Potassium 3.9 mmol/L (3.5-5.0); Total Bilirubin 0.3 mg/dL (0.2-1.0)
[2020-09-12 04:17] LABS: Albumin/Globulin Ratio 1.1 (1-3); EGFR African American 16.6 (>60); EGFR Non-African American 13.7 (>60); Globulin 2.1 g/dL (2-4); Phosphorus 3.4 mg/dL (2.5-5.0); Total Protein 4.4 g/dL (6.4-8.9)
[2020-09-12 04:21] LABS: ABS Eosinophils 0.4 10^3/ul (0-0.6); ABS Lymphocytes 1.8 10^3/ul (1.0-4.8); ABS Monocytes 1.2 10^3/ul (0-0.8); ABS Neutrophils 10.8 10^3/ul (1.5-7.7); Eosinophil % 2.9 %; Lymphocyte % 12.5 %
[2020-09-12] MEDS: Linezolid 600 MG IVPREMIX(*) 600 MG/300 ML BAG IVPB SCH ×2 (05:32→16:38)
[2020-09-12] MEDS: Heparin 5000 UNITS/ML 1 mL VIAL SUBCUT SCH ×3 (05:37→21:35)
[2020-09-12] MEDS: D5W 1000 ml BAG 1,000 ML IV SCH (06:33)
[2020-09-12] MEDS: Propofol 10 mg/ml 100 ML BTL 100 ML IV SCH (07:26)
[2020-09-12] MEDS: fentaNYL 100 mcg/2 ml 50 MCG/ML VIAL IV SLOW PU PRN (08:02)
[2020-09-12] MEDS: LORazepam 2 mg VIAL 1 ml IV PUSH PRN ×2 (08:05→17:31)
[2020-09-12 08:16] LABS: Glucose Confirmatory 445 mg/dL (70-100)
[2020-09-12] MEDS: Pantoprazole VIAL 40 MG VIAL IV SCH ×2 (08:25→21:35)
[2020-09-12] MEDS: Insulin GLARGINE 100 un/ml 10 ml VIAL SUBCUT SCH (08:30)
[2020-09-12] MEDS ORDERED: Furosemide 40 mg/4 ml IV VIAL IV ONE (10:00)
[2020-09-12] MEDS: cefTRIAXone 1 gm/50 mL NS BAG 1 GM/50 ML BAG IVPB SCH (11:16)
[2020-09-12] MEDS ORDERED: Acetaminophen IV 1 GM/100ML 100 ML IV PRN (11:28)
[2020-09-12] MEDS: Acetaminophen IV 1 GM/100ML 100 ML IV PRN (11:55)
[2020-09-12 16:03] LABS: Hematocrit 20 % (35-47); Hemoglobin 6.6 g/dL (12.0-16.0); Mean Corpuscular HGB Conc 33 g/dL (31-36); Mean Corpuscular Hemoglobin 32 pg (27-31); Mean Corpuscular Volume 95 fL (80-97); Mean Platelet Volume 10.1 fL (7.4-10.4); Platelet Count 171 10^3/uL (150-450); Red Cell Distribution Width 14 % (10-15)
[2020-09-12 16:17] LABS: Calcium 7.9 mg/dL (8.6-10.3); EGFR African American 15.6 (>60); EGFR Non-African American 12.9 (>60); Magnesium 2.1 mg/dL (1.9-2.7); Phosphorus 3.3 mg/dL (2.5-5.0); Potassium 3.6 mmol/L (3.5-5.0)
[2020-09-12] MEDS: TPN CENTRAL STANDARD BASE A CENTR SCH (17:45)
[2020-09-12 18:48] LABS: Hematocrit 29 % (35-47); Hemoglobin 9.3 g/dL (12.0-16.0); Mean Corpuscular HGB Conc 32 g/dL (31-36); Mean Corpuscular Hemoglobin 31 pg (27-31); Mean Corpuscular Volume 96 fL (80-97); Mean Platelet Volume 10.1 fL (7.4-10.4); Platelet Count 145 10^3/uL (150-450); Red Blood Count 3.03 10^6 /uL (3.70-4.87); Red Cell Distribution Width 14 % (10-15); White Blood Count 19.7 10^3/uL (3.5-10.8)
[2020-09-12] MEDS: Simethicone SUSP ORALSYR 66.66 MG/ML PO SCH ×2 (19:40→23:52)
[2020-09-12] MEDS ORDERED: KCL 20 MEQ/100 ML IVPREMIX 20 MEQ/100 ML BAG IV ONE (19:58)
[2020-09-12] MEDS ORDERED: Simethicone SUSP ORALSYR 66.66 MG/ML PO SCH (21:00)
[2020-09-12] MEDS: Norepinephrine 16MCG/ML IVPRE 4,000 MCG/250 ML BAG IV SCH (22:28)
[2020-09-13] MEDS: Chlorhexidine MOUTHWASH 0.12% 15 ML UDC TOPICAL SCH ×6 (01:37→21:34)
[2020-09-13] MEDS: Dexmedetomidine 1,000 MCG in NS 0.9% 250 ml 240 ML IV SCH (02:16)
[2020-09-13] MEDS: metroNIDAZOLE IV 500 MG/100ML 500 MG/100 ML BAG IVPB SCH ×3 (04:11→18:39)
[2020-09-13] MEDS: Heparin 5000 UNITS/ML 1 mL VIAL SUBCUT SCH ×3 (05:41→21:34)
[2020-09-13] MEDS: Linezolid 600 MG IVPREMIX(*) 600 MG/300 ML BAG IVPB SCH ×2 (05:41→16:44)
[2020-09-13 05:59] LABS: Hematocrit 30 % (35-47); Hemoglobin 9.9 g/dL (12.0-16.0); Mean Corpuscular HGB Conc 33 g/dL (31-36); Mean Corpuscular Hemoglobin 31 pg (27-31); Mean Corpuscular Volume 95 fL (80-97); Mean Platelet Volume 9.6 fL (7.4-10.4); Platelet Count 225 10^3/uL (150-450); Red Blood Count 3.19 10^6 /uL (3.70-4.87); Red Cell Distribution Width 14 % (10-15); White Blood Count 21.4 10^3/uL (3.5-10.8)
[2020-09-13] MEDS: Propofol 10 mg/ml 100 ML BTL 100 ML IV SCH ×2 (06:00→14:44)
[2020-09-13 06:13] LABS: Calcium 7.9 mg/dL (8.6-10.3); EGFR African American 16.3 (>60); EGFR Non-African American 13.5 (>60); Phosphorus 3.2 mg/dL (2.5-5.0); Potassium 3.7 mmol/L (3.5-5.0)
[2020-09-13] MEDS: Pantoprazole VIAL 40 MG VIAL IV SCH ×2 (09:30→21:34)
[2020-09-13] MEDS: cefTRIAXone 1 gm/50 mL NS BAG 1 GM/50 ML BAG IVPB SCH (09:33)
[2020-09-13] MEDS: Insulin GLARGINE 100 un/ml 10 ml VIAL SUBCUT SCH (09:35)
[2020-09-13] MEDS: Simethicone SUSP ORALSYR 66.66 MG/ML PO SCH (09:36)
[2020-09-13] MEDS ORDERED: Lorazepam PYXIS KEY ONE (12:43)
[2020-09-13] MEDS ORDERED: LORazepam 2 mg VIAL 1 ml ONE (12:44)
[2020-09-13] MEDS: Acetaminophen IV 1 GM/100ML 100 ML IV PRN (14:51)
[2020-09-13] MEDS: Norepinephrine 16MCG/ML IVPRE 4,000 MCG/250 ML BAG IV SCH (16:06)
[2020-09-13] MEDS ORDERED: KCL 20 MEQ/100 ML IVPREMIX 20 MEQ/100 ML BAG IV ONE (21:30)
[2020-09-14] MEDS: Propofol 10 mg/ml 100 ML BTL 100 ML IV SCH ×2 (00:07→08:12)
[2020-09-14] MEDS: Dexmedetomidine 1,000 MCG in NS 0.9% 250 ml 240 ML IV SCH (00:22)
[2020-09-14] MEDS: LORazepam 2 mg VIAL 1 ml IV PUSH PRN (01:33)
[2020-09-14] MEDS: Chlorhexidine MOUTHWASH 0.12% 15 ML UDC TOPICAL SCH ×3 (02:30→08:06)
[2020-09-14] MEDS: metroNIDAZOLE IV 500 MG/100ML 500 MG/100 ML BAG IVPB SCH ×3 (04:07→20:18)
[2020-09-14] MEDS: Linezolid 600 MG IVPREMIX(*) 600 MG/300 ML BAG IVPB SCH ×2 (05:22→16:58)
[2020-09-14 05:36] LABS: Hematocrit 28 % (35-47); Hemoglobin 9.5 g/dL (12.0-16.0); Mean Corpuscular HGB Conc 34 g/dL (31-36); Mean Corpuscular Hemoglobin 32 pg (27-31); Mean Corpuscular Volume 93 fL (80-97); Mean Platelet Volume 9.3 fL (7.4-10.4); Platelet Count 262 10^3/uL (150-450); Red Blood Count 3.01 10^6 /uL (3.70-4.87); Red Cell Distribution Width 14 % (10-15); White Blood Count 15.7 10^3/uL (3.5-10.8)
[2020-09-14 05:54] LABS: Calcium 7.6 mg/dL (8.6-10.3); EGFR African American 15.4 (>60); EGFR Non-African American 12.7 (>60); Magnesium 1.9 mg/dL (1.9-2.7); Phosphorus 3.3 mg/dL (2.5-5.0); Potassium 3.8 mmol/L (3.5-5.0)
[2020-09-14] MEDS: Heparin 5000 UNITS/ML 1 mL VIAL SUBCUT SCH ×3 (06:15→21:34)
[2020-09-14] MEDS: Insulin GLARGINE 100 un/ml 10 ml VIAL SUBCUT SCH (08:02)
[2020-09-14] MEDS: Pantoprazole VIAL 40 MG VIAL IV SCH ×2 (08:04→21:34)
[2020-09-14] MEDS: cefTRIAXone 1 gm/50 mL NS BAG 1 GM/50 ML BAG IVPB SCH (11:09)
[2020-09-14] MEDS ORDERED: Ondansetron 4 mg VIAL 2 MG/ML 2 ml VIAL ONE (11:54)
[2020-09-14] MEDS: Acetaminophen IV 1 GM/100ML 100 ML IV PRN ×2 (11:56→21:39)
[2020-09-15] MEDS: metroNIDAZOLE IV 500 MG/100ML 500 MG/100 ML BAG IVPB SCH (03:34)
[2020-09-15] MEDS: Acetaminophen IV 1 GM/100ML 100 ML IV PRN (03:47)
[2020-09-15] MEDS: Heparin 5000 UNITS/ML 1 mL VIAL SUBCUT SCH ×3 (07:29→21:22)
[2020-09-15] MEDS: Linezolid 600 MG IVPREMIX(*) 600 MG/300 ML BAG IVPB SCH (07:29)
[2020-09-15 07:34] LABS: Hematocrit 30 % (35-47); Mean Corpuscular HGB Conc 34 g/dL (31-36); Mean Corpuscular Hemoglobin 31 pg (27-31); Mean Corpuscular Volume 93 fL (80-97); Mean Platelet Volume 8.5 fL (7.4-10.4); Platelet Count 316 10^3/uL (150-450); Red Blood Count 3.21 10^6 /uL (3.70-4.87); Red Cell Distribution Width 14 % (10-15); White Blood Count 15.3 10^3/uL (3.5-10.8)
[2020-09-15 07:51] LABS: Calcium 7.4 mg/dL (8.6-10.3); EGFR African American 17.5 (>60); EGFR Non-African American 14.5 (>60); Magnesium 1.7 mg/dL (1.9-2.7); Phosphorus 3.8 mg/dL (2.5-5.0); Potassium 3.4 mmol/L (3.5-5.0)
[2020-09-15] MEDS: Pantoprazole VIAL 40 MG VIAL IV SCH ×2 (08:27→20:40)
[2020-09-15] MEDS: Insulin GLARGINE 100 un/ml 10 ml VIAL SUBCUT SCH (08:28)
[2020-09-15] MEDS ORDERED: Insulin GLARGINE 100 un/ml 10 ml VIAL SUBCUT ONE (09:22)
[2020-09-15] MEDS ORDERED: Magnesium Sulfate IV 3 GM in NS 0.9% 100 ml BAG 100 ML IVPB ONE (09:24)
[2020-09-15] MEDS ORDERED: Buffered Lidocaine 1% SYRIN 1 ml INTRADERM ONE (09:25)
[2020-09-15] MEDS: KCL 20 MEQ/100 ML IVPREMIX 20 MEQ/100 ML BAG IV SCH ×2 (09:49→12:30)
[2020-09-15] MEDS: cefTRIAXone 1 gm/50 mL NS BAG 1 GM/50 ML BAG IVPB SCH (10:12)
[2020-09-15] MEDS: Morphine 2 MG/ML SYRINGE IV PRN (17:51)
[2020-09-16] MEDS: Morphine 2 MG/ML SYRINGE IV PRN ×3 (00:04→17:47)
[2020-09-16] MEDS: Heparin 5000 UNITS/ML 1 mL VIAL SUBCUT SCH ×3 (06:03→21:41)
[2020-09-16 06:11] LABS: Hematocrit 33 % (35-47); Hemoglobin 10.5 g/dL (12.0-16.0); Mean Corpuscular HGB Conc 32 g/dL (31-36); Mean Corpuscular Hemoglobin 30 pg (27-31); Mean Corpuscular Volume 95 fL (80-97); Mean Platelet Volume 8.6 fL (7.4-10.4); Platelet Count 375 10^3/uL (150-450); Red Blood Count 3.45 10^6 /uL (3.70-4.87); Red Cell Distribution Width 14 % (10-15); White Blood Count 17.9 10^3/uL (3.5-10.8)
[2020-09-16 06:32] LABS: Calcium 7.4 mg/dL (8.6-10.3); EGFR African American 20.4 (>60); EGFR Non-African American 16.9 (>60); Magnesium 2.2 mg/dL (1.9-2.7); Phosphorus 3.6 mg/dL (2.5-5.0); Potassium 3.7 mmol/L (3.5-5.0)
[2020-09-16] MEDS ORDERED: Insulin GLARGINE 100 un/ml 10 ml VIAL SUBCUT SCH (08:00)
[2020-09-16] MEDS: Pantoprazole VIAL 40 MG VIAL IV SCH ×2 (08:42→21:42)
[2020-09-16 09:31] LABS: C Reactive Protein 26.4 mg/L (<8.01)
[2020-09-16] MEDS: cefTRIAXone 1 gm/50 mL NS BAG 1 GM/50 ML BAG IVPB SCH (10:34)
[2020-09-17] MEDS: Morphine 2 MG/ML SYRINGE IV PRN ×3 (03:56→17:21)
[2020-09-17] MEDS: Heparin 5000 UNITS/ML 1 mL VIAL SUBCUT SCH ×3 (05:29→20:55)
[2020-09-17 05:53] LABS: Hematocrit 31 % (35-47); Hemoglobin 10.2 g/dL (12.0-16.0); Mean Corpuscular HGB Conc 33 g/dL (31-36); Mean Corpuscular Hemoglobin 31 pg (27-31); Mean Corpuscular Volume 95 fL (80-97); Mean Platelet Volume 7.8 fL (7.4-10.4); Platelet Count 370 10^3/uL (150-450); Red Blood Count 3.27 10^6 /uL (3.70-4.87); Red Cell Distribution Width 14 % (10-15); White Blood Count 17.4 10^3/uL (3.5-10.8)
[2020-09-17 06:07] LABS: Albumin 2.3 g/dL (3.2-5.2); Albumin/Globulin Ratio 0.8 (1-3); Calcium 7.2 mg/dL (8.6-10.3); EGFR African American 23.5 (>60); EGFR Non-African American 19.4 (>60); Globulin 2.8 g/dL (2-4); Potassium 3.6 mmol/L (3.5-5.0); Total Bilirubin 0.4 mg/dL (0.2-1.0); Total Protein 5.1 g/dL (6.4-8.9)
[2020-09-17 06:27] LABS: ABS Basophils 0.1 10^3/ul (0-0.2); ABS Eosinophils 0.4 10^3/ul (0-0.6); ABS Lymphocytes 2.9 10^3/ul (1.0-4.8); ABS Monocytes 1.9 10^3/ul (0-0.8); ABS Neutrophils 12.1 10^3/ul (1.5-7.7); Eosinophil % 2.4 %; Lymphocyte % 16.7 %
[2020-09-17] MEDS: Insulin GLARGINE 100 un/ml 10 ml VIAL SUBCUT SCH (08:03)
[2020-09-17] MEDS: Pantoprazole VIAL 40 MG VIAL IV SCH ×2 (08:03→20:54)
[2020-09-17] MEDS: cefTRIAXone 1 gm/50 mL NS BAG 1 GM/50 ML BAG IVPB SCH (10:07)
[2020-09-17] MEDS: Dextran 70/Hypromellose Tears Eye Drops 15 ml BTL (for Artificials Tears) BOTH EYES PRN ×2 (11:33→20:55)
[2020-09-17] MEDS: Fluticasone NASAL SPRAY 50MCG 16 gm SPRAY BTL BOTH NARES SCH (14:40)
[2020-09-17] MEDS: oxyCODONE/Acetamin 5/325 mg TAB PO PRN (20:54)
[2020-09-18] MEDS: Morphine 2 MG/ML SYRINGE IV PRN ×2 (01:18→14:05)
[2020-09-18] MEDS: Dextran 70/Hypromellose Tears Eye Drops 15 ml BTL (for Artificials Tears) BOTH EYES PRN (01:18)
[2020-09-18] MEDS: oxyCODONE/Acetamin 5/325 mg TAB PO PRN ×3 (03:38→20:24)
[2020-09-18 04:28] LABS: Urine Appearance Cloudy; Urine Bacteria 1+ (Absent); Urine Bilirubin Negative (Negative); Urine Blood 3+ (Negative); Urine Glucose Negative (Negative); Urine Ketones Negative (Negative); Urine Nitrite Negative (Negative); Urine Protein 1+(30 mg/dL) (Negative); Urine Red Blood Cell 3+(>10/hpf) (Absent); Urine Specific Gravity 1.006 (1.002-1.030); Urine Urobilinogen Negative (Negative); Urine White Blood Cell 2+(11-20/hpf) (Absent)
[2020-09-18 04:29] LABS: Urine Color Red
[2020-09-18] MEDS: Heparin 5000 UNITS/ML 1 mL VIAL SUBCUT SCH ×3 (05:48→20:25)
[2020-09-18 06:22] LABS: Calcium 7.3 mg/dL (8.6-10.3); Magnesium 1.8 mg/dL (1.9-2.7); Potassium 3.8 mmol/L (3.5-5.0)
[2020-09-18 06:27] LABS: EGFR African American 25.3 (>60); EGFR Non-African American 20.9 (>60)
[2020-09-18 06:28] LABS: ABS Basophils 0.2 10^3/ul (0-0.2); ABS Eosinophils 0.4 10^3/ul (0-0.6); ABS Lymphocytes 3.1 10^3/ul (1.0-4.8); ABS Monocytes 1.4 10^3/ul (0-0.8); Eosinophil % 2.2 %; Hematocrit 31 % (35-47); Hemoglobin 10.2 g/dL (12.0-16.0); Lymphocyte % 18.2 %; Mean Corpuscular HGB Conc 33 g/dL (31-36); Mean Corpuscular Hemoglobin 31 pg (27-31); Mean Corpuscular Volume 95 fL (80-97); Platelet Count 330 10^3/uL (150-450); Red Blood Count 3.27 10^6 /uL (3.70-4.87); Red Cell Distribution Width 14 % (10-15)
[2020-09-18] MEDS: Insulin GLARGINE 100 un/ml 10 ml VIAL SUBCUT SCH (08:04)
[2020-09-18] MEDS: Fluticasone NASAL SPRAY 50MCG 16 gm SPRAY BTL BOTH NARES SCH (08:04)
[2020-09-18] MEDS: Pantoprazole VIAL 40 MG VIAL IV SCH ×2 (08:05→20:24)
[2020-09-18] MEDS ORDERED: Magnesium Sulfate 2 gm BAG 2 GM/50 ML BAG IVPB ONE (12:35)
[2020-09-18] MEDS ORDERED: diPHENhydraMINE 25 mg TAB PO PRN (15:36)
[2020-09-19] MEDS: oxyCODONE/Acetamin 5/325 mg TAB PO PRN ×3 (02:37→18:37)
[2020-09-19] MEDS: Morphine 2 MG/ML SYRINGE IV PRN (02:38)
[2020-09-19] MEDS: Heparin 5000 UNITS/ML 1 mL VIAL SUBCUT SCH ×3 (05:34→21:27)
[2020-09-19 06:09] LABS: Hematocrit 29 % (35-47); Hemoglobin 9.6 g/dL (12.0-16.0); Mean Corpuscular HGB Conc 34 g/dL (31-36); Mean Corpuscular Hemoglobin 31 pg (27-31); Mean Corpuscular Volume 93 fL (80-97); Mean Platelet Volume 7.7 fL (7.4-10.4); Platelet Count 399 10^3/uL (150-450); Red Blood Count 3.06 10^6 /uL (3.70-4.87); Red Cell Distribution Width 14 % (10-15); White Blood Count 18.5 10^3/uL (3.5-10.8)
[2020-09-19 06:13] LABS: ABS Basophils 0.2 10^3/ul (0-0.2); ABS Eosinophils 0.4 10^3/ul (0-0.6); ABS Lymphocytes 3.4 10^3/ul (1.0-4.8); ABS Monocytes 1.8 10^3/ul (0-0.8); ABS Neutrophils 12.8 10^3/ul (1.5-7.7); Eosinophil % 1.9 %; Lymphocyte % 18.4 %
[2020-09-19 06:29] LABS: Calcium 7.5 mg/dL (8.6-10.3); EGFR African American 29.7 (>60); EGFR Non-African American 24.6 (>60); Potassium 3.6 mmol/L (3.5-5.0)
[2020-09-19] MEDS: Insulin GLARGINE 100 un/ml 10 ml VIAL SUBCUT SCH (08:42)
[2020-09-19] MEDS: Fluticasone NASAL SPRAY 50MCG 16 gm SPRAY BTL BOTH NARES SCH (08:42)
[2020-09-19] MEDS: Pantoprazole VIAL 40 MG VIAL IV SCH ×2 (08:44→21:27)
[2020-09-19] MEDS: Dextran 70/Hypromellose Tears Eye Drops 15 ml BTL (for Artificials Tears) BOTH EYES PRN (10:09)
[2020-09-19] MEDS: [UNRECOGNIZED DRUG - MIXTURE] PO SCH (21:27)
[2020-09-20] MEDS: oxyCODONE/Acetamin 5/325 mg TAB PO PRN ×3 (00:59→14:31)
[2020-09-20] MEDS: Morphine 2 MG/ML SYRINGE IV PRN ×2 (04:47→20:04)
[2020-09-20] MEDS: Heparin 5000 UNITS/ML 1 mL VIAL SUBCUT SCH ×3 (05:30→22:17)
[2020-09-20 06:01] LABS: Hematocrit 28 % (35-47); Hemoglobin 9.1 g/dL (12.0-16.0); Mean Corpuscular HGB Conc 33 g/dL (31-36); Mean Corpuscular Hemoglobin 31 pg (27-31); Mean Corpuscular Volume 94 fL (80-97); Mean Platelet Volume 7.9 fL (7.4-10.4); Platelet Count 431 10^3/uL (150-450); Red Blood Count 2.96 10^6 /uL (3.70-4.87); Red Cell Distribution Width 14 % (10-15); White Blood Count 18.9 10^3/uL (3.5-10.8)
[2020-09-20 06:21] LABS: Calcium 7.6 mg/dL (8.6-10.3); EGFR African American 32.5 (>60); EGFR Non-African American 26.9 (>60); Magnesium 1.8 mg/dL (1.9-2.7); Potassium 3.6 mmol/L (3.5-5.0)
[2020-09-20 06:39] LABS: ABS Basophils 0.2 10^3/ul (0-0.2); ABS Eosinophils 0.4 10^3/ul (0-0.6); ABS Lymphocytes 3.9 10^3/ul (1.0-4.8); ABS Monocytes 1.7 10^3/ul (0-0.8); ABS Neutrophils 12.6 10^3/ul (1.5-7.7); Eosinophil % 2.3 %; Lymphocyte % 20.9 %
[2020-09-20] MEDS: Insulin GLARGINE 100 un/ml 10 ml VIAL SUBCUT SCH (08:11)
[2020-09-20] MEDS: Dextran 70/Hypromellose Tears Eye Drops 15 ml BTL (for Artificials Tears) BOTH EYES PRN (08:11)
[2020-09-20] MEDS: Fluticasone NASAL SPRAY 50MCG 16 gm SPRAY BTL BOTH NARES SCH (08:11)
[2020-09-20] MEDS: Pantoprazole VIAL 40 MG VIAL IV SCH ×2 (08:11→22:16)
[2020-09-20] MEDS: LIDOCAINE 4% TOPICAL PRN (08:22)
[2020-09-20] MEDS: [UNRECOGNIZED DRUG - MIXTURE] PO SCH (22:22)
[2020-09-21] MEDS: oxyCODONE/Acetamin 5/325 mg TAB PO PRN ×3 (00:49→15:43)
[2020-09-21] MEDS: Morphine 2 MG/ML SYRINGE IV PRN ×2 (04:22→21:34)
[2020-09-21] MEDS: Heparin 5000 UNITS/ML 1 mL VIAL SUBCUT SCH ×3 (05:42→21:35)
[2020-09-21 06:08] LABS: Hematocrit 30 % (35-47); Hemoglobin 10.2 g/dL (12.0-16.0); Mean Corpuscular HGB Conc 34 g/dL (31-36); Mean Corpuscular Hemoglobin 32 pg (27-31); Mean Corpuscular Volume 94 fL (80-97); Mean Platelet Volume 7.6 fL (7.4-10.4); Platelet Count 451 10^3/uL (150-450); Red Blood Count 3.17 10^6 /uL (3.70-4.87); Red Cell Distribution Width 14 % (10-15); White Blood Count 17.4 10^3/uL (3.5-10.8)
[2020-09-21 06:56] LABS: ABS Basophils 0.2 10^3/ul (0-0.2); ABS Eosinophils 0.4 10^3/ul (0-0.6); ABS Lymphocytes 3.4 10^3/ul (1.0-4.8); ABS Monocytes 1.6 10^3/ul (0-0.8); ABS Neutrophils 11.8 10^3/ul (1.5-7.7); Eosinophil % 2.2 %; Lymphocyte % 19.6 %
[2020-09-21] MEDS: Pantoprazole VIAL 40 MG VIAL IV SCH ×2 (08:52→21:34)
[2020-09-21] MEDS: Insulin GLARGINE 100 un/ml 10 ml VIAL SUBCUT SCH (08:53)
[2020-09-21 09:13] LABS: C Reactive Protein 13.92 mg/L (<8.01)
[2020-09-21] MEDS: Dextran 70/Hypromellose Tears Eye Drops 15 ml BTL (for Artificials Tears) BOTH EYES PRN ×2 (10:13→15:44)
[2020-09-21] MEDS: Fluticasone NASAL SPRAY 50MCG 16 gm SPRAY BTL BOTH NARES SCH (10:14)
[2020-09-21] MEDS: LIDOCAINE 4% TOPICAL PRN (21:37)
[2020-09-21] MEDS: [UNRECOGNIZED DRUG - MIXTURE] PO SCH (21:39)
[2020-09-22] MEDS: Morphine 2 MG/ML SYRINGE IV PRN (02:52)
[2020-09-22] MEDS: oxyCODONE/Acetamin 5/325 mg TAB PO PRN ×2 (05:23→17:47)
[2020-09-22] MEDS: Heparin 5000 UNITS/ML 1 mL VIAL SUBCUT SCH ×3 (05:23→21:57)
[2020-09-22 06:10] LABS: Hematocrit 31 % (35-47); Hemoglobin 10.1 g/dL (12.0-16.0); Mean Corpuscular HGB Conc 33 g/dL (31-36); Mean Corpuscular Hemoglobin 31 pg (27-31); Mean Corpuscular Volume 94 fL (80-97); Mean Platelet Volume 7.8 fL (7.4-10.4); Platelet Count 447 10^3/uL (150-450); Red Blood Count 3.26 10^6 /uL (3.70-4.87); Red Cell Distribution Width 14 % (10-15); White Blood Count 14.8 10^3/uL (3.5-10.8)
[2020-09-22] MEDS: Fluticasone NASAL SPRAY 50MCG 16 gm SPRAY BTL BOTH NARES SCH (08:40)
[2020-09-22] MEDS: Insulin GLARGINE 100 un/ml 10 ml VIAL SUBCUT SCH (08:40)
[2020-09-22] MEDS: Dextran 70/Hypromellose Tears Eye Drops 15 ml BTL (for Artificials Tears) BOTH EYES PRN ×2 (08:41→21:57)
[2020-09-22] MEDS: Pantoprazole VIAL 40 MG VIAL IV SCH ×2 (08:41→21:57)
[2020-09-22 08:46] LABS: ABS Basophils 0.2 10^3/ul (0-0.2); ABS Eosinophils 0.3 10^3/ul (0-0.6); ABS Lymphocytes 3.6 10^3/ul (1.0-4.8); ABS Monocytes 1.6 10^3/ul (0-0.8); ABS Neutrophils 9.1 10^3/ul (1.5-7.7); Eosinophil % 2.1 %; Lymphocyte % 24.1 %
[2020-09-22 09:02] LABS: Calcium 8.2 mg/dL (8.6-10.3); EGFR African American 37.6 (>60); EGFR Non-African American 31.1 (>60); Potassium 4.2 mmol/L (3.5-5.0)
[2020-09-22] MEDS: [UNRECOGNIZED DRUG - MIXTURE] PO SCH (21:57)
[2020-09-23] MEDS: oxyCODONE/Acetamin 5/325 mg TAB PO PRN ×4 (00:39→19:24)
[2020-09-23] MEDS: Heparin 5000 UNITS/ML 1 mL VIAL SUBCUT SCH ×3 (05:56→20:33)
[2020-09-23 06:00] LABS: Albumin 2.9 g/dL (3.2-5.2); EGFR African American 36.1 (>60); EGFR Non-African American 29.8 (>60); Potassium 3.9 mmol/L (3.5-5.0); Total Bilirubin 0.3 mg/dL (0.2-1.0); Total Protein 5.9 g/dL (6.4-8.9)
[2020-09-23] MEDS: Insulin GLARGINE 100 un/ml 10 ml VIAL SUBCUT SCH (09:09)
[2020-09-23] MEDS: Fluticasone NASAL SPRAY 50MCG 16 gm SPRAY BTL BOTH NARES SCH (09:09)
[2020-09-23] MEDS: Pantoprazole VIAL 40 MG VIAL IV SCH ×2 (09:10→20:34)
[2020-09-23] MEDS: [UNRECOGNIZED DRUG - MIXTURE] PO SCH (20:33)
[2020-09-24] MEDS: oxyCODONE/Acetamin 5/325 mg TAB PO PRN ×2 (02:13→08:28)
[2020-09-24] MEDS: Dextran 70/Hypromellose Tears Eye Drops 15 ml BTL (for Artificials Tears) BOTH EYES PRN (02:18)
[2020-09-24] MEDS: Heparin 5000 UNITS/ML 1 mL VIAL SUBCUT SCH (05:59)
[2020-09-24] MEDS: Fluticasone NASAL SPRAY 50MCG 16 gm SPRAY BTL BOTH NARES SCH (08:26)
[2020-09-24] MEDS: Insulin GLARGINE 100 un/ml 10 ml VIAL SUBCUT SCH (08:26)
[2020-09-24] MEDS: Pantoprazole VIAL 40 MG VIAL IV SCH (08:47)
[2020-09-24 11:25] VITALS: BP 175/65
== END 2020-09-24 12:40 | DRG 853 ==
LOC: ED 16:30 → ICU 20:37 → SUATTDRO 20:37 → SSU 09-15 16:19
PROVIDERS: ADMIT Internal Medicine; ATTEND Internal Medicine

== ENCOUNTER 2022-02-02 14:30 | Observation (INO) ==
[2022-02-02] MEDS ORDERED: Ondansetron 4 mg VIAL 2 MG/ML 2 ml VIAL IV ONE (19:44)
[2022-02-02] MEDS ORDERED: Morphine 4 MG/ML VIAL (1 ml) IV ONE (19:44)
[2022-02-02] MEDS ORDERED: NS 0.9% IVPB ONE (19:45)
[2022-02-02] MEDS ORDERED: CLINDAMYCIN IVPB ONE (19:45)
[2022-02-02] MEDS ORDERED: Clindamycin 600 MG/D5W BAG 600 MG/50 ML BAG IV ONE (20:28)
[2022-02-02 21:02] LABS: Hematocrit 40 % (35-47); Mean Corpuscular HGB Conc 33 g/dL (31-36); Mean Corpuscular Hemoglobin 30 pg (27-31); Mean Corpuscular Volume 92 fL (80-97); Mean Platelet Volume 8.4 fL (7.4-10.4); Platelet Count 338 10^3/uL (150-450); Red Blood Count 4.32 10^6 /uL (3.70-4.87); Red Cell Distribution Width 15 % (10-15)
[2022-02-02 21:28] LABS: ABS Basophils 0.1 10^3/ul (0-0.2); ABS Eosinophils 0.2 10^3/ul (0-0.6); ABS Lymphocytes 3.5 10^3/ul (1.0-4.8); ABS Monocytes 1.8 10^3/ul (0-0.8); ABS Neutrophils 9.4 10^3/ul (1.5-7.7); Eosinophil % 1.3 %
[2022-02-02 21:49] LABS: Blood Urea Nitrogen 22 mg/dL (6-24); C Reactive Protein 8.27 mg/L (<8.01); CO2 Carbon Dioxide 22 mmol/L (22-32); Calcium 9.1 mg/dL (8.6-10.3); Chloride 105 mmol/L (101-111); Glucose 63 mg/dL (70-100); Sodium 138 mmol/L (135-145); eGFR CKD-EPI 88.8 (>60)
[2022-02-02 21:51] LABS: Anion Gap 11 mmol/L (2-11)
[2022-02-02] MEDS ORDERED: Iodixanol (CONTRAST) 320 MG/ML 100 ML SDV IV ONE (21:57)
[2022-02-03] MEDS ORDERED: Iodixanol (CONTRAST) 320 MG/ML 100 ML SDV IV ONE (00:36)
[2022-02-03] MEDS ORDERED: Dextran 70/Hypromellose Tears Eye Drops 15 ml BTL (for Artificials Tears) BOTH EYES PRN (00:39)
[2022-02-03] MEDS ORDERED: Dextrose 50% Syringe 50 ml 25 GM/50 ML SYRINGE IV PUSH PRN (00:41)
[2022-02-03] MEDS ORDERED: Morphine 4 MG/ML VIAL (1 ml) IV ONE (01:06)
[2022-02-03] MEDS: HYDROmorphone 0.5 MG/0.5 ML SYRINGE IV SLOW PU PRN ×3 (06:57→21:32)
[2022-02-03] MEDS: DULoxetine DR 60 mg CAP PO SCH (09:06)
[2022-02-03] MEDS: Ondansetron 4 mg VIAL 2 MG/ML 2 ml VIAL IV PRN ×3 (09:11→17:56)
[2022-02-03] MEDS: Fluticasone NASAL SPRAY 50MCG 16 gm SPRAY BTL BOTH NARES SCH (11:26)
[2022-02-03] MEDS: D5W 1/2 NS 1000 ml BAG 1,000 ML IV SCH ×2 (13:28→22:02)
[2022-02-03] MEDS ORDERED: Prochlorperazine 5 mg/ml 2 ml VIAL (10 mg) IV PRN (20:57)
[2022-02-04 06:00] LABS: ABS Basophils 0.1 10^3/ul (0-0.2); ABS Eosinophils 0.3 10^3/ul (0-0.6); ABS Lymphocytes 2.7 10^3/ul (1.0-4.8); ABS Monocytes 1.5 10^3/ul (0-0.8); ABS Neutrophils 6.2 10^3/ul (1.5-7.7); Eosinophil % 3.2 %; Hematocrit 35 % (35-47); Hemoglobin 11.8 g/dL (12.0-16.0); Lymphocyte % 24.9 %; Mean Corpuscular HGB Conc 34 g/dL (31-36); Mean Corpuscular Hemoglobin 31 pg (27-31); Mean Corpuscular Volume 92 fL (80-97); Mean Platelet Volume 7.9 fL (7.4-10.4); Nucleated Red Blood Cells % 0.1; Platelet Count 242 10^3/uL (150-450); Red Blood Count 3.79 10^6 /uL (3.70-4.87); Red Cell Distribution Width 15 % (10-15); White Blood Count 10.7 10^3/uL (3.5-10.8)
[2022-02-04] MEDS: Ondansetron 4 mg VIAL 2 MG/ML 2 ml VIAL IV PRN (06:09)
[2022-02-04 06:38] LABS: Calcium 8.4 mg/dL (8.6-10.3); Potassium 3.8 mmol/L (3.5-5.0); eGFR CKD-EPI 87.3 (>60)
[2022-02-04] MEDS: Fluticasone NASAL SPRAY 50MCG 16 gm SPRAY BTL BOTH NARES SCH (08:13)
[2022-02-04] MEDS: DULoxetine DR 60 mg CAP PO SCH (08:13)
[2022-02-04 10:39] LABS: C Reactive Protein 14.41 mg/L (<8.01)
[2022-02-04] MEDS ORDERED: oxyCODONE/Acetamin 5/325 mg TAB PO ONE (10:47)
[2022-02-04] MEDS ORDERED: oxyCODONE/Acetamin 5/325 mg TAB ONE (10:51)
[2022-02-04 11:08] VITALS: BP 116/58
== END 2022-02-04 13:40 | disposition home or self-care (01) ==
LOC: EDHOLD 14:30 → ED 14:30 → SUATTDRO 02-03 01:28 → SSU 02-03 08:00
PROVIDERS: ADMIT Student in an Organized Health Care Education/Training Program; ATTEND Hospitalist